=== PATIENT | male | born 2000 | race Hispanic/Latino ===

== ENCOUNTER 2024-08-06 23:16 | Emergency (ER) | payer SELFPAY ==
[2024-08-06 23:52] LABS: #Basophils Less than 0.03 10x3/uL (0.0-0.2); #Eosinphils Less than 0.03 10x3/uL (0.0-0.7); %Basophils 0.2 % (0.0-1.0); %Eosinophils 0.1 % (0.0-10.0); %Lymphocytes 23.8 % (21.0-51.0); %Monocytes 11.5 % (0.0-10.0); %Neutrophils 63.9 % (42.0-75.0); Hematocrit 48.4 % (42.0-52.0); Hemoglobin 17.2 g/dL (14.0-18.0); Mean Corpuscular HGB CONC 35.5 g/dL (32.0-36.0); Mean Corpuscular Hemoglobin 32.6 pg (27.0-31.0); Mean Corpuscular Volume 91.8 fL (78.0-98.0); Mean Platelet Volume 9.4 fL (7.4-10.4); Platelet Count 295 10x3/uL (130-400); RBC Distribution Width 11.7 % (11.5-14.5); Red Blood Cell (RBC) Count 5.27 mill/uL (4.70-6.10)
[2024-08-07 00:06] LABS: ALT (SGPT) 128 U/L (8-55); AST (SGOT) 104 U/L (5-34); Albumin 4.4 g/dL (3.5-5.0); Alkaline Phosphatase 71 U/L (40-110); Anion Gap 18 mmol/L (10-20); BUN (Urea Nitrogen) 8 mg/dL (8.9-20.6); Bilirubin, Total 0.9 mg/dL (0.2-1.2); Calc. Creatinine Clearance 0 mL/min (70-130); Calcium 9.4 mg/dL (7.8-10.44); Carbon Dioxide 17 mmol/L (22-29); Chloride 108 mmol/L (98-107); Estimated GFR 126; Glucose 105 mg/dL (70-105); Potassium 3.3 mmol/L (3.5-5.1); Protein, Total 8.4 g/dL (6.0-8.3); Sodium 140 mmol/L (136-145)
[2024-08-07 00:07] LABS: Acetaminophen Less than 10 mcg/mL (Less than 10); Alcohol 184.2 mg/dL (Less than 10); Salicylate Less than 8.0 mg/dL (Less than 8.0)
[2024-08-07 00:08] LABS: Bacteria/HPF None Seen HPF (None Seen); Bilirubin Negative (Negative); Blood, Urine Negative (Negative); CAUTI Indications for Culture Alt mental st,lethar; Clarity Clear (Clear); Glucose, Urine (Dipstick) Normal (Negative); Ketone, Urine Negative (Negative); Leukocyte Negative Leu/uL (Negative); Nitrite Negative (Negative); Protein, Urine (Dipstick) Negative (Neg-Trace); RBC/HPF 0-3 HPF (0-3); Specific Gravity, Urine 1.005 (1.002-1.036); Squamous Epithelial None Seen HPF (0-3); Urobilinogen Normal mg/dL (Less than 2); WBC/HPF 0-3 HPF (0-3); pH, Urine 6.5 (5.0-9.0)
[2024-08-07 00:27] LABS: Urine Culture Reflex No No
[2024-08-07] MEDS ORDERED: Potassium Chloride 20 MEQ TAB ONE (01:39)
[2024-08-07] MEDS ORDERED: Ibuprofen 800 MG TAB ONE (01:44)
== END 2024-08-07 09:49 | disposition home or self-care (01) ==
LOC: ERS 23:16
DX: R45.851 Suicidal ideations (principal); F17.290 Nicotine dependence, other tobacco product, uncomplicated; F10.129 Alcohol abuse with intoxication, unspecified; Y90.4 Blood alcohol level of 80-99 mg/100 ml
CPT/HCPCS: 36415; 80053; 80307; 81001; 85025; 93005